=== PATIENT | female | born 1995 | race Caucasian/White ===

== ENCOUNTER 2019-04-07 12:11 | Emergency (ER) | payer BC ==
[~2019-04-07] VITALS: Ht 165.1 cm; Wt 88.5 kg
[~2019-04-07 12:11] MED LIST: FLEXERIL PO; KEFLEX500 MG PO; MOBIC7.5 MG PO; NOHOMEMEDICATIONS; NORCO 5-325 TA1 EAC1 PO; ONDANSETRON HCL4 M2 PO; VENLAFAXIN75 MG/1 T2 PO
[2019-04-07 12:27] VITALS: BP 137/66
== END 2019-04-07 13:58 | disposition home or self-care (01) ==
LOC: ER 12:11
DX: R10.13 Epigastric pain (principal); R11.2 Nausea with vomiting, unspecified; R19.7 Diarrhea, unspecified; F32.9 Major depressive disorder, single episode, unspecified; F41.9 Anxiety disorder, unspecified; G43.909 Migraine, unspecified, not intractable, without status migrainosus; Z90.49 Acquired absence of other specified parts of digestive tract

== ENCOUNTER 2019-05-26 10:23 | Emergency (ER) | payer BC ==
[~2019-05-26] VITALS: Ht 167.6 cm; Wt 74.8 kg
--- NOTE | ~2019-05-26 | EKG ---
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
[2019-05-26 10:47] LABS: ABSOLUTE NEUTROPHILS 11.4 thou/uL (1.4-8.2); BASOPHILS 0.2 % (0.0-2.0); EOSINOPHILS 0.3 % (0.0-3.0); HEMATOCRIT 41.5 % (37.0-47.0); HEMOGLOBIN 13.6 gm/dL (12.0-15.0); LYMPHOCYTES 10.3 % (24.0-44.0); MCH 29.6 pg (26.0-34.0); MCHC 32.7 g/dL (28.0-37.0); MCV 90.7 fL (80.0-100.0); MONOCYTES 2.4 % (1.0-8.0); POLYS 86.8 % (36.0-66.0); RBC 4.57 mil/uL (4.20-5.00); RDW 13.7 % (10.5-14.5); WBC 13.1 thou/uL (4.0-11.0)
[2019-05-26 11:00] LABS: CALCIUM 9.3 mg/dL (8.5-10.1); MAGNESIUM 2.2 mg/dL (1.8-2.4); POTASSIUM 3.8 mmol/L (3.5-5.1)
[2019-05-26 11:26] LABS: PLATELET COUNT 256 thou/uL (150-400)
[2019-05-26 13:50] LABS: URINE BILIRUBIN NEGATIVE (Negative); URINE BLOOD 3+ (Negative); URINE CLARITY CLEAR; URINE COLOR YELLOW; URINE GLUCOSE-RANDOM* NEGATIVE (Negative); URINE KETONES 3+ (Negative); URINE LEUKOCYTES-REFLEX NEGATIVE (Negative); URINE NITRITE-REFLEX NEGATIVE (Negative); URINE PROTEIN (DIPSTICK) TRACE (Negative); URINE SPECIFIC GRAVITY >= 1.030 (1.005-1.035); URINE UROBILINOGEN 0.2 E.U./dl (0.2-1.0)
[2019-05-26 13:56] LABS: URINE REDUCING SUBSTANCE NEGATIVE
[2019-05-26 14:17] LABS: SQUAMOUS 0-3 Few /LPF (0-3); URINE RBC >20 Many /HPF (0-2)
[2019-05-26 14:18] LABS: BACTERIA-REFLEX 1-9 Few /HPF (None Seen); CASTS None Seen /LPF (None Seen); CRYSTALS None Seen /LPF (None Seen); URINE WBC-REFLEX None Seen /HPF (0-5)
[2019-05-26] MEDS ORDERED: PROMS25 WY RECTAL (14:18)
[2019-05-26] MEDS ORDERED: ZOFRAN ODT4 MG PO (14:18)
[2019-05-26] MEDS ORDERED: ZANTAC 150MG T150 M1 PO (14:18)
[2019-05-26 14:49] VITALS: BP 108/42
== END 2019-05-26 14:50 | disposition home or self-care (01) ==
LOC: ER 10:23
PROVIDERS: Emergency Medicine; Nurse Practitioner Family
DX: R11.2 Nausea with vomiting, unspecified (principal); R10.13 Epigastric pain; F41.9 Anxiety disorder, unspecified; F32.9 Major depressive disorder, single episode, unspecified; G43.909 Migraine, unspecified, not intractable, without status migrainosus; Z90.49 Acquired absence of other specified parts of digestive tract

== ENCOUNTER 2020-04-12 08:36 | Emergency (ER) | payer BC ==
[~2020-04-12] VITALS: Ht 165.1 cm; Wt 66.7 kg
[~2020-04-12 08:36] MED LIST changes: +PROMS25 WY RECTAL; +ZANTAC 150MG T150 M1 PO; +ZOFRAN ODT4 MG PO
[2020-04-12 08:56] LABS: HEMATOCRIT 42.9 % (37.0-47.0); HEMOGLOBIN 14.1 gm/dL (12.0-15.0); MCH 30.2 pg (26.0-34.0); MCHC 32.8 g/dL (28.0-37.0); MCV 92.1 fL (80.0-100.0); PLATELET COUNT 314 thou/uL (150-400); RBC 4.66 mil/uL (4.20-5.00); WBC 22.6 thou/uL (4.0-11.0)
[2020-04-12 09:14] LABS: ANION GAP 18 mmol/L (7-16); BUN 13 mg/dL (7-18); CALCIUM 10.5 mg/dL (8.5-10.1); CHLORIDE 101 mmol/L (98-107); CO2 23 mmol/L (21-32); CREATININE 1.1 mg/dL (0.6-1.0); GLUCOSE 156 mg/dL (74-106); POTASSIUM 4.1 mmol/L (3.5-5.1); SODIUM 142 mmol/L (136-145)
[2020-04-12 09:25] LABS: ALBUMIN 4.7 g/dL (3.4-5.0); SGOT 21 U/L (15-37); SGPT 21 U/L (30-65); TOTAL BILIRUBIN 0.6 mg/dL (0.2-1.0); TOTAL PROTEIN 8.1 g/dL (6.4-8.2); TROPONIN-I <0.06 ng/mL (<0.06)
[2020-04-12 10:02] LABS: ABSOLUTE NEUTROPHILS 20.3 thou/uL (1.4-8.2); PLATELET ESTIMATE NORMAL
[2020-04-12 11:34] LABS: URINE BILIRUBIN NEGATIVE (Negative); URINE BLOOD NEGATIVE (Negative); URINE CLARITY CLEAR; URINE COLOR YELLOW; URINE GLUCOSE-RANDOM* NEGATIVE (Negative); URINE KETONES 3+ (Negative); URINE LEUKOCYTES-REFLEX NEGATIVE (Negative); URINE NITRITE-REFLEX NEGATIVE (Negative); URINE PROTEIN (DIPSTICK) TRACE (Negative); URINE UROBILINOGEN 0.2 E.U./dl (0.2-1.0)
[2020-04-12 11:43] LABS: URINE REDUCING SUBSTANCE NEGATIVE
[2020-04-12] MEDS ORDERED: REGLAN 10 MG TA10 MG PO (12:22)
[2020-04-12] MEDS ORDERED: ZOFRAN ODT4 MG PO (12:22)
[2020-04-12 12:44] VITALS: BP 103/39
--- NOTE | 2020-04-12 15:35 | EKG ---
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 : 1995 Requested By: Mario Rajput Order Number: [id number] MD: Hudson Dillard Measurements Intervals [place] Rate: 55 P: 80 ND: 153 QRS: 75 QRSD: 100 T: 71 QT: 432 QTc: 414 Interpretive Statements Sinus rhythm Consider left atrial enlargement Mild diffuse ST elevation, consider pericarditis Lateral leads are also involved Compared to ECG 05/26/2019 10:25:26 Sinus bradycardia no longer present Electronically Signed On 04-12-2020 15:35:27 COMPLIANCE PROGRAM MANAGER by Hudson Dillard [email or web address] <ELECTRONICALLY SIGNED> By: Hudson Dillard MD, [facility] 04/12/20 1535 D: [id number] Hudson Dillard MD, FACC /EPI
== END 2020-04-12 12:44 | disposition home or self-care (01) ==
LOC: ER 08:36
PROVIDERS: Emergency Medicine
DX: R11.2 Nausea with vomiting, unspecified (principal); G43.909 Migraine, unspecified, not intractable, without status migrainosus; R10.84 Generalized abdominal pain; Z90.49 Acquired absence of other specified parts of digestive tract; Z79.899 Other long term (current) drug therapy